=== PATIENT | female | born 1975 | race American Indian/Alaskan Native ===

== ENCOUNTER 2017-03-30 09:13 | Outpatient (CLI) | payer BC ==
--- NOTE | 2017-03-31 11:04 | Mammography Report ---
Bilateral digital screening mammogram with CAD. Comparison study is dated March 17, 2016. Findings: The breast parenchyma is heterogeneously dense. In the upper outer left breast, there is a small parenchymal asymmetry needing further evaluation. No architectural distortion or other suspicious findings. Impression: Small left peripheral asymmetry. BI-RADS code: 0. Recommendation: Spot compression images, 90 degree view, and ultrasound if needed.
== END 2017-03-30 09:14 | disposition home or self-care (01) ==
LOC: SPVWC 09:13
PROVIDERS: ATTEND Obstetrics & Gynecology
DX: Z12.31 Encounter for screening mammogram for malignant neoplasm of breast (principal)
CPT/HCPCS: 77067; G0202